=== PATIENT | female | born 1955 | race Caucasian/White ===

== ENCOUNTER 2018-03-24 15:37 | Outpatient (CLI) | payer MEDICARE, OTHER | END 2018-03-24 15:38 | disposition home or self-care (01) | LOC: CTENTCT 15:37 | PROVIDERS: ATTEND Specialist | DX: J32.9 Chronic sinusitis, unspecified (principal) | CPT/HCPCS: 70486 ==

== ENCOUNTER → 2018-05-13 | Day surgery (SDC) | payer MEDICARE, OTHER ==
[2018-05-12 13:17] VITALS: BMI 27.4
[~2018-05-13] MED LIST: Dexamethasone 20 MG/5 ML VIAL ONE; Fentanyl 100 MCG/2 ML VIAL ONE; Ferric Subsulfate 8 ML BOT ONE; Hydrocodone-Acetamin 15 ML UDCUP ONE; Labetalol HCl 100 MG/20 ML VIAL ONE; Lidocaine 1% PF 5 ML VIAL ONE; Lidocaine 1% w/Epinephrine 1:100K 30 ML VIAL ONE; Midazolam HCl 2 mg/2 ml Vial ONE; Ondansetron PF 4 MG/2 ML Vial ONE; Oxymetazoline HCl 0.05% ( 15 ML ) ONE; PROPOFOL 200 MG/20 ML VIAL ONE; Succinylcholine Chloride 20 MG/ML 10 ml SYRINGE FS ONE
[2018-05-13 11:21] LABS: Hemoglobin 12.3 g/dL (12.0-16.0)
[2018-05-13 11:41] LABS: Anion Gap 12 mmol/L (10-20); BUN (Urea Nitrogen) 28 mg/dL (9.8-20.1); Calc. Creatinine Clearance 64 mL/min (70-130); Calcium 9.8 mg/dL (7.8-10.44); Carbon Dioxide 28 mmol/L (23-31); Chloride 102 mmol/L (98-107); Estimated GFR-MDRD 51; Glucose 83 mg/dL (80-115); Potassium 3.4 mmol/L (3.5-5.1); Sodium 139 mmol/L (136-145)
--- NOTE | 2018-05-13 15:42 | EKG ---
Test Reason : PREOP Blood Pressure : / mmHG Vent. Rate : 077 BPM Atrial Rate : 077 BPM P-R Int : 160 ms QRS Dur : 070 ms QT Int : 386 ms P-R-T Axes : 067 038 036 degrees QTc Int : 436 ms Normal sinus rhythm Normal ECG Confirmed by WILEY TREVINO ([id number]) on 05/13/2018 3:41:55 PM Referred By: JAGUAR Confirmed By:WILEY TREVINO
--- NOTE | 2018-05-13 15:51 | OP ---
PREOPERATIVE DIAGNOSES: Chronic sinusitis, allergic fungal sinusitis, facial pain, hypertrophic infe rior turbinates. POSTOPERATIVE DIAGNOSES: Chronic sinusitis, allergic fungal sinusitis, facial pain, hypertrophic inf erior turbinates. PROCEDURES PERFORMED: 1. Stereotactic image guidance surgery with landmark. 2. Bilateral nasal endoscopy with maxillary antrostomy with removal of tissue, . 3. Bilateral nasal endoscopy with frontal sinusotomy. 4. Bilateral nasal endoscopy with total ethmoidectomy. FINDINGS: The patient had extensive scarring and recurrence of tonsils with presence of abundant of allergic fungal frontal recess. Bone was hyperostotic and thickened. The landmark was used to help facilitate a frontal sinusotomy bilaterally. DESCRIPTION OF PROCEDURES: After consent was obtained, the patient was identified, brought to the operating room, and placed on the operating room table in the supine position. Consent was obtained, notifying the patient of the possibility of additional infections, bleeding, brain injury, and eye/orbital injury. The patient w as placed on the operating room table, and general endotracheal anesthesia and intravenous access was obtained. The patient was then positioned, prepped and draped for endoscopic sinus surgery. Nasal preparation included trimming nasal vestibular hairs and spraying in topical Afrin. We then placed A frin topical solution on nasal pledgets and strategically located them intranasally. The perinasal m ucosa was injected with 1% lidocaine with 1:100,000 epinephrine in the submucoperichondrial plane of the septum, lateral nasal wall, and anterior to the uncinate. The patient was then prepped and drape d in a sterile fashion and positioned for endoscopic sinus surgery. Endoscopic Sinus Surgery: With the 0-degree endoscope, the patient underwent systematic nasal endosc opy. There were no suspicious internasal masses or lesions identified. We then focused our attentio n to the osteomeatal complex region under the middle turbinate. Maxillary Antrostomy: The uncinate was then identified and the extent of the uncinate was appreciate d by out-fracturing the uncinate with the ball-tip probe. We then used the sickle blade to disarticu late the uncinate from the lateral nasal wall. This was then removed with straight biting and upbiti ng punches with the remaining shrouds of mucosa and bony septum removed with the micro-debrider. The natural os of the maxillary sinus was then identified and enlarged with the maxillary punches and ba ck biting forceps. Total Ethmoidectomy: The anterior face of the ethmoid bulla was entered and with the micro-debrider, dissection continued posteriorly to the ground lamella. The limits of dissection included the inser tion of the middle turbinate, medial orbital wall, and base of skull. We similarly identified the fr ontal recess and removed shrouds of bone and debris in that region to obtain patency into the agger n asi region and frontal recess. We then entered the ground lamella and its anteroinferior aspect and proceeded posteriorly, opening the posterior ethmoid air-cell system. Again, the limits of dissectio n included the base of skull and medial orbital wall. At this point, we then turned our attention to the contralateral side and proceeded with endoscopic s inus surgery. At the completion of the case, Rice keel splints were placed in the ethmoid cavities after the ethmoi dectomy. There were no complications. The patient tolerated the procedure well and was discharged t o the recovery room in stable condition prior to return to the preoperative Day Stay with [facility]. Prescriptions for pain medication and antibiotics were provided. The patient received intramuscular Depo-Medrol during the case.
[2018-05-18 10:22] LABS: Fungus Stain Final report (.); Fungus Stain Result 1 Hyphae observed (.)
== END ==
LOC: SDC 10:29
PROVIDERS: ATTEND Specialist
PROC: 8E09XBZ Computer Assisted Procedure of Head and Neck Region (ICD-10-PCS; principal; 2018-05-13)
PROC: 09TV8ZZ Resection of Left Ethmoid Sinus, Via Natural or Artificial Opening Endoscopic (ICD-10-PCS; 2018-05-13)
PROC: 09TU8ZZ Resection of Right Ethmoid Sinus, Via Natural or Artificial Opening Endoscopic (ICD-10-PCS; 2018-05-13)
PROC: 8E09XBZ Computer Assisted Procedure of Head and Neck Region (ICD-10-PCS; 2018-05-13)
PROC: 09BR8ZZ Excision of Left Maxillary Sinus, Via Natural or Artificial Opening Endoscopic (ICD-10-PCS; 2018-05-13)
PROC: 09BQ8ZZ Excision of Right Maxillary Sinus, Via Natural or Artificial Opening Endoscopic (ICD-10-PCS; 2018-05-13)
PROC: 099T8ZZ Drainage of Left Frontal Sinus, Via Natural or Artificial Opening Endoscopic (ICD-10-PCS; 2018-05-13)
PROC: 099S8ZZ Drainage of Right Frontal Sinus, Via Natural or Artificial Opening Endoscopic (ICD-10-PCS; 2018-05-13)
DX: J32.8 Other chronic sinusitis (principal); J33.9 Nasal polyp, unspecified; J30.89 Other allergic rhinitis; E78.00 Pure hypercholesterolemia, unspecified; E03.9 Hypothyroidism, unspecified; J30.1 Allergic rhinitis due to pollen; J30.81 Allergic rhinitis due to animal (cat) (dog) hair and dander; I10 Essential (primary) hypertension; B95.61 Methicillin susceptible Staphylococcus aureus infection as the cause of diseases classified elsewhere; B96.89 Other specified bacterial agents as the cause of diseases classified elsewhere; Z79.899 Other long term (current) drug therapy; Z88.2 Allergy status to sulfonamides; Z98.890 Other specified postprocedural states
CPT/HCPCS: 36415; 80048; 85014; 85018; 87070; 87077; 87102; 87186; 87205; 87206; 93005; 93010; 96374; J1100; J2001; J2250; J2405; J2704; J3010